=== PATIENT | female | born 1990 | race African-American/Black ===

== ENCOUNTER 2019-08-15 16:22 | Emergency (ER) | payer MEDICAID ==
[~2019-08-15] VITALS: Ht 167.6 cm; Wt 72.0 kg
[2019-08-15] MEDS ORDERED: IBUPROFEN 600MG TABLET PO ONE (18:15)
[2019-08-15] MEDS ORDERED: HYDROCODONE/APAP 7.5/325MG 1 TAB TABLET PO ONE (18:15)
[2019-08-15 19:44] VITALS: BP 136/72
== END 2019-08-15 19:48 | disposition home or self-care (01) ==
LOC: ER 16:22
DX: S60.221A Contusion of right hand, initial encounter (principal); W20.8XXA Other cause of strike by thrown, projected or falling object, initial encounter; Y92.9 Unspecified place or not applicable
CPT/HCPCS: 29125; 73110; 73130; 99283; Z7610